=== PATIENT | female | born 1975 | race Caucasian/White ===

== ENCOUNTER 2025-07-28 20:57 | Emergency (ER) | payer BC, SELFPAY ==
[2025-07-28] VITALS (18 sets, daily range): BP systolic 93–123; BP diastolic 56–80; PULSE 61–82; TEMP 36.6; O2SAT 98; BMI 32.8
--- NOTE | 2025-07-28 21:33 | ECG_ITS ---
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 Measurements Intervals [place] Rate: 65 P: 43 VT: 144 QRS: 1 QRSD: 86 T: 120 QT: 404 QTc: 415 Interpretive Statements 1100 Sinus rhythm [address] depression 4564 Twave abnormality, possible lateral ischemia 9150 abnormal ECG No previous ECG available for comparison Electronically Signed On 07-30-2025 20:16:10 EST by ZELALEM SHEEHAN M.D.
--- NOTE | 2025-07-28 21:33 | XR_ITS ---
[place] [id number] Patient Name: THAD PORTER MRN: [id number] date: 1975 Sex: F Assigned Patient Location: ER Current Patient Location: ED.MAIN Accession/Order Number: [id number] Exam Date: 07/28/2025 21:45 Report Date: 07/28/2025 22:32 At the request of: ANKUSH LESTER Procedure: XR chest 1V Plain film chest Single view HISTORY: Chest pain COMPARISON: None FINDINGS: SUPPORT DEVICES: None POSTSURGICAL CHANGES: CABG HEART: Within normal limits PULMONARY TINA: Within normal limits MEDIASTINUM: Unremarkable LUNGS AND PLEURA: No acute lung process, pleural effusion or pneumothorax identified. Of mild right hemidiaphragm elevation BONY STRUCTURES: Intact ADDITIONAL FINDINGS None XR/XR chest 1V IMPRESSION: No acute process. Impression dictated by: Xavier Umanzor M.D. 07/28/2025 10:32 PM [facility] Electron[facility] authenticated by: [id number] Y Date: 07/28/2025 22:32
[2025-07-28 21:49] LABS: Hematocrit 36.8 % (36.0-48.0); Hemoglobin 12.0 g/dL (12.0-16.0); Immature Granulocytes Abs Auto 0.02 10^3/uL (0.00-0.03); Immature Granulocytes Pct Auto 0.3 % (0.0-0.5); Lymphocytes Absolute Auto 1.8 10^3/uL (1.2-3.8); Mean Corpuscular HGB Conc 32.6 g/dL (29.9-35.2); Mean Corpuscular Hemoglobin 28.8 pg (26.7-34.0); Mean Corpuscular Volume 88.5 fL (81.0-99.0); Platelet Count 261 10^3/uL (150-450); Red Blood Count 4.16 10^6/uL (4.20-5.40); White Blood Count 6.6 10^3/uL (4.0-11.0)
--- OUTSIDE RECORDS SUMMARY | 2025-07-28 21:58 | XMS_ITS | Clinical Summary ---
Author Organization [facility] Address [address] [address] [place] [address] Phone Care Team Providers Care Risk Control Consultant Name Role Phone Unavailable Primary Care Provider Unavailabl e Social History Tobacco UseTypesPacks/DayYears UsedDateSmoking Tobacco: Never Assessed CommentsUnknownSex and Gender InformationValueDate RecordedSex Assigned at Not on fileLegal ZrkSvhzmu33/25/2022 2:06 PM ESTGender IdentityNot on fileSexual OrientationNot on file Plan of Treatment Not on file
[2025-07-28 22:05] LABS: INR 0.97; Partial Thromboplastin Time 26.2 sec (22.3-36.2); Prothrombin Time 10.3 sec (9.0-11.6)
[2025-07-28 22:09] LABS: Alanine Aminotransferase 30 U/L (14-59); Albumin Globulin Ratio 1.2; Albumin Level 3.4 g/dL (3.4-5.0); Alkaline Phosphatase 103 U/L (46-116); Anion Gap 8.4; Aspartate Amino Transferase 21 U/L (15-37); Blood Urea Nitrogen 24.0 mg/dL (7.0-18.0); Calcium 8.6 mg/dL (8.5-10.1); Carbon Dioxide 31.2 mmol/L (21.0-32.0); Chloride 105 mmol/L (98-107); Estimated GFR (African America >60 (>=60 mL/min/1.73m^2); Estimated GFR (Non-African Ame 58 (>=60 mL/min/1.73m^2); Globulin 2.9 g/dL; Glucose 109 mg/dL (74-106); NT Pro B Type Natriuretic Pept 109.0 pg/mL (<=900.0); Potassium 3.6 mmol/L (3.5-5.1); Sodium 141 mmol/L (136-145); Total Protein 6.3 g/dL (6.4-8.2)
[2025-07-29] VITALS (23 sets, daily range): BP systolic 96–111; BP diastolic 60–71; PULSE 65–85
--- NOTE | 2025-07-29 01:07 | ED.CHESTPAI1 ---
HPI - Chest Pain General Chief Complaint: Chest Pain Stated Complaint: CHEST PAIN Time Seen by Provider: 07/28/25 21:33 Source: patient Mode of arrival: walk-in Limitations: no limitations History of Present Illness HPI narrative: past history of CAD. s/p 5 vessel CABG . Tonight presents with recurrent episodes of chest pain. States pain starts in her back and radiates to her chest and down both arms. No associated nausea or vomiting. 3 episodes tonight that each lasted about 10 minutes. Pain left chest is easing off at this time. No abdominal pain Related Data Home Medications ?Medication ?Instructions ?Recorded ?Confirmed aspirin 325 mg tablet 325 mg PO DAILY 07/28/25 07/28/25 atorvastatin 40 mg tablet 40 mg PO QPM 07/29/25 07/29/25 buspirone 7.5 mg tablet 7.5 mg PO BID 07/29/25 07/29/25 cetirizine 10 mg tablet (Zyrtec) 10 mg PO DAILY 07/29/25 07/29/25 fluoxetine 40 mg capsule 40 mg PO DAILY 07/29/25 07/29/25 isosorbide mononitrate 30 mg 30 mg PO DAILY 07/29/25 07/29/25 tablet,extended release 24 hr levothyroxine 88 mcg tablet 88 mcg PO DAILY 07/29/25 07/29/25 (Synthroid) metoprolol succinate 100 mg 100 mg PO DAILY 07/29/25 07/29/25 tablet,extended release 24 hr ramipril 5 mg tablet 5 mg PO DAILY 07/29/25 07/29/25 Allergies Allergy/AdvReac Type Severity Reaction Status Date / Time No Known Drug Allergies Allergy Verified 07/28/25 21:08 Review of Systems ROS Status of ROS 10 or more systems reviewed and unremarkable except as noted in history and below [facility] Medical History (Updated 07/29/25 @ 03:43 by Ravinder Jackson MD) Hypothyroid ?E03.9 - Hypothyroidism, unspecified (ICD-10) HTN (hypertension) ?I10 - Essential (primary) hypertension (ICD-10) High cholesterol ?E78.00 - Pure hypercholesterolemia, unspecified (ICD-10) Surgical History (Updated 07/29/25 @ 00:37 by Sophie Rolon) History of heart bypass surgery ?Z95.1 - Presence of aortocoronary bypass graft (ICD-10) Social History Little interest or pleasure in doing things: not at all Feeling down, depressed, or hopeless: not at all Exam Constitutional Vital Signs, click to edit/add: Last Vital Signs Temp 98 F 07/28/25 21:09 Pulse 85 07/29/25 04:00 Resp 19 07/29/25 04:00 BP 110/69 07/29/25 04:00 Pulse Ox 98 07/28/25 21:09 O2 Del Method Room Air 07/28/25 21:09 Common normals: no apparent distress, average body habitus, oriented x3, no limitations, healthy appearing, alert and well nourished HENMT Common normals: normocephalic and head/scalp atraumatic Eye Common normals: EOMs intact bilaterally and conjunctivae normal Respiratory Common normals: normal respiratory effort, no retractions, no use of accessory muscles and clear to auscultation bilaterally Cardio Common normals: regular rate, regular rhythm, S1 normal heart sound and S2 normal heart sound GI Common normals: Normal to inspection, nondistended, normoactive bowel sounds present, soft to palpation and non-tender Extremity Common normals: normal to inspection and full ROM Neuro Common normals: oriented x3, CN's II-XII intact bilaterally, moves all extremities and no focal motor deficits Psych Appearance: grossly normal Course Vital Signs Vital signs: Vital Signs Temperature 98 F 07/28/25 21:09 Pulse Rate 66 07/28/25 21:09 Respiratory Rate 12 07/28/25 21:09 Blood Pressure 123/75 07/28/25 21:09 Pulse Oximetry 98 07/28/25 21:09 Oxygen Delivery Method Room Air 07/28/25 21:09 Temperature 98 F 07/28/25 21:09 Pulse Rate 85 07/29/25 04:00 Respiratory Rate 19 07/29/25 04:00 Blood Pressure 110/69 07/29/25 04:00 Pulse Oximetry 98 07/28/25 21:09 Oxygen Delivery Method Room Air 07/28/25 21:09 MDM - Chest Pain MDM Narrative Medical decision making narrative: past history of CAD s/p 5 vessel CABG. recurrent anginal symptoms tonight back pain radiating into her chest and down her arm. Serial troponin elevated from 49 to 105. Patient currently pain free. EKG NSR sl. ST depression I, V2, nonspecific ST change V1 inverted T aVL. cxray clear. Patient advised of working diagnosis of NSTEMI. Heparin bolus and drip ordered and hospitalist at [facility] paged Lab Data Labs: Lab Results 07/28/25 07/28/25 Range/Units 21:41 23:50 WBC 6.6 (4.0-11.0) 10^3/uL RBC 4.16 L (4.20-5.40) 10^6/uL Hgb 12.0 (12.0-16.0) g/dL Hct 36.8 (36.0-48.0) % MCV 88.5 (81.0-99.0) fL MCH 28.8 (26.7-34.0) pg MCHC 32.6 (29.9-35.2) g/dL RDW 13.1 (11.0-15.0) % Plt Count 261 (150-450) 10^3/uL MPV 10.2 (9.5-13.5) fL Neut % (Auto) 60.5 (43.0-75.0) % Lymph % (Auto) 27.3 (20.5-60.0) % [place] % (Auto) 7.8 (1.7-12.0) % Eos % (Auto) 3.5 (0.9-7.0) % Baso % (Auto) 0.6 (0.2-2.0) % Neut # (Auto) 4.0 (1.4-6.5) 10^3/uL Lymph # (Auto) 1.8 (1.2-3.8) 10^3/uL [place] # (Auto) 0.5 (0.3-0.8) 10^3/uL Eos # (Auto) 0.2 (0.0-0.7) 10^3/uL Baso # (Auto) 0.0 (0.0-0.1) 10^3/uL Abs Immat Gran (auto) 0.02 (0.00-0.03) 10^3/uL Imm/Tot Granulo (auto) 0.3 (0.0-0.5) % PT 10.3 (9.0-11.6) sec INR 0.97 APTT 26.2 (22.3-36.2) sec D-Dimer <0.19 (<=0.59) mg/L FEU Sodium 141 (136-145) mmol/L Potassium 3.6 (3.5-5.1) mmol/L Chloride 105 (98-107) mmol/L Carbon Dioxide 31.2 (21.0-32.0) mmol/L Anion Gap 8.4 BUN 24.0 H (7.0-18.0) mg/dL Creatinine 1.01 (0.55-1.02) mg/dL Est GFR ( Amer) >60 (>=60 mL/min/1.73m^2) Est GFR (Non-Af Amer) 58 L (>=60 mL/min/1.73m^2) BUN/Creatinine Ratio 23.8 Glucose 109 H (74-106) mg/dL Calcium 8.6 (8.5-10.1) mg/dL Total Bilirubin 0.3 (0.2-1.0) mg/dL AST 21 (15-37) U/L ALT 30 (14-59) U/L Alkaline Phosphatase 103 (46-116) U/L Troponin I High Sens 49.8 105.3 H* (4.0-51.3) pg/mL NT-Pro-B Natriuret Pep 109.0 (<=900.0) pg/mL Total Protein 6.3 L (6.4-8.2) g/dL Albumin 3.4 (3.4-5.0) g/dL Globulin 2.9 g/dL Albumin/Globulin Ratio 1.2 Discharge Plan Discharge Chief Complaint: Chest Pain Clinical Impression: Non-ST elevation [place] (NSTEMI) Patient Disposition: [facility] Discharge Location: [facility] Discharge location: Discharged too [facility] room 4031 Condition: Fair Mode of Transportation: EMS Discharge Date/Time: 07/29/25 04:31
[2025-07-29] MEDS: HEPARIN SODIUM (PORCINE) 5,000 UNIT/ML VIAL 4000 UNIT IV (01:33)
[2025-07-29] MEDS: HEPARIN SODIUM,PORCINE/D5W 25,000 UNIT/500 ML IV.SOLN 15.6 UNIT IV (01:33)
== END 2025-07-29 04:31 | disposition short-term general hospital (02) ==
PROVIDERS: Physician Assistant; Emergency Provider Internal Medicine
DX: I21.4 Non-ST elevation (NSTEMI) myocardial infarction (principal); I25.10 Atherosclerotic heart disease of native coronary artery without angina pectoris; Z95.1 Presence of aortocoronary bypass graft
CPT/HCPCS: 36415; 71045; 80053; 83880; 84484; 85025; 85378; 85610; 85730; 93005; 96365; 96366; 96376; 99284; 99285; J1644